=== PATIENT | male | born 1940 | race Caucasian/White ===

== ENCOUNTER 2022-09-27 18:57 | Emergency (ER) | payer MEDICARE, OTHER ==
[2022-09-27 19:40] LABS: BASOPHILS ABSOLUTE AUTO 0.1 K/uL (0.0-0.1); BASOPHILS PERCENT AUTO 0.8 % (0.0-1.5); EOSINOPHILS ABSOLUTE AUTO 0.2 K/uL (0.0-0.7); EOSINOPHILS PERCENT AUTO 3.1 % (0.0-7.0); HEMATOCRIT 29.9 % (38.0-50.0); HEMOGLOBIN 9.1 g/dL (13.0-17.0); LYMPHOCYTES ABSOLUTE AUTO 0.9 K/uL (0.6-2.4); LYMPHOCYTES PERCENT AUTO 14.4 % (16.0-40.0); MEAN CORPUSCULAR HEMOGLOBIN 19.1 pg (27.0-32.0); MEAN CORPUSCULAR HGB CONC 30.4 g/dL (31.0-37.0); MEAN CORPUSCULAR VOLUME 62.8 fL (80.0-98.0); MONOCYTES ABSOLUTE AUTO 0.6 K/uL (0.0-0.8); MONOCYTES PERCENT AUTO 9.3 % (0.0-15.0); NEUTROPHILS ABSOLUTE AUTO 4.4 K/uL (1.4-5.7); NEUTROPHILS PERCENT AUTO 72.4 % (48.0-80.0); NRBC ABSOLUTE 0 K/uL; RED BLOOD CELL COUNT 4.76 M/uL (4.50-5.90); WHITE BLOOD CELL COUNT,WBC 6.11 K/uL (4.0-11.0)
[2022-09-27 19:45] LABS: PLATELET COUNT,PLT 187 K/uL (150-400)
[2022-09-27 20:05] LABS: A/G RATIO 0.9 (0.9-1.6); ALBUMIN 3.1 g/dL (3.4-5.0); BILIRUBIN TOTAL 1.1 mg/dL (0.2-1.0); CALCIUM 8.8 mg/dL (8.5-10.1); CARBON DIOXIDE,CO2 24.5 mmol/L (21.0-32.0); CREATININE 2.6 mg/dL (0.8-1.3); EST CRCL DRUG DOSING (CG) 20.46 mL/min; PROTEIN TOTAL,TP 6.7 g/dL (6.4-8.2)
[2022-09-27] MEDS ORDERED: Bacitracin Oint 1 GM U/D Packet TOP ONE (20:45)
== END 2022-09-27 21:11 | disposition home or self-care (01) ==
LOC: MW.ED 18:57
DX: S51.011A Laceration without foreign body of right elbow, initial encounter (principal); R55 Syncope and collapse; E87.6 Hypokalemia; W19.XXXA Unspecified fall, initial encounter
CPT/HCPCS: 36415; 70450; 70450-26; 71045; 71045-26; 72125; 72125-26; 80053; 84484; 85025; 93005; 93010; 99283; 99285